=== PATIENT | female | born 1985 | race Caucasian/White ===

== ENCOUNTER 2021-11-14 23:57 | Emergency (ER) | payer BC, OTHER ==
[~2021-11-14] VITALS: Ht 154.9 cm; Wt 113.4 kg
[~2021-11-14 23:57] MED LIST: ACET-1172 PO
[2021-11-14 23:59] VITALS: BP_SYST 149
--- NOTE | 2021-11-15 00:02 | NUR ---
PER PATIENT, SHE IS 2 MONTHS POST- AND STARTED TAKING A DIET PILL TWO WEEKS AGO, SINCE TAKING PILL, PATIENT HAS HAD INCREASE IN DIARRHEA, AND PALPITATIONS AND FEELING WEAKNESS IN MUSCLES. NO OTHER COMPLAINTS AT THIS TIME.
--- NOTE | 2021-11-15 00:15 | NUR ---
PATIENT BROUGHT BACK TO BED 2 WITHOUT ISSUE, WAITING TO BE SEEN BY PHYSICIAN, REPORT GIVEN TO NABEEL EMANUEL.
[2021-11-15 00:56] LABS: HEMOGLOBIN 11.9 g/dL (12.0-16.0); MEAN CORPUSCULAR VOLUME 82 fL (79.0-98.0)
[2021-11-15 01:01] LABS: BASOPHILS % (AUTO) 0.7 % (0.0-2.0); EOSINOPHILS # (AUTO) 0.1 K/uL (0.0-0.4); EOSINOPHILS % (AUTO) 1.8 % (0.0-4.0); HEMATOCRIT 34.8 % (36-48); LYMPHOCYTES # (AUTO) 2.5 K/uL (1.0-5.5); LYMPHOCYTES % (AUTO) 34.5 % (20.5-51.5); MEAN CORPUSCULAR HEMOGLOBIN 28 pg (27-31); MEAN CORPUSCULAR HGB CONC 34 % (32-36); MONOCYTES # (AUTO) 0.5 K/uL (0.0-1.0); MONOCYTES % (AUTO) 7.2 % (1.7-9.3); NEUTROPHILS # (AUTO) 4.1 K/uL (1.8-7.7); NEUTROPHILS % (AUTO) 55.8 % (40.0-70.0); PLATELET COUNT (AUTO) 233 K/uL (130-430); RED BLOOD CELL COUNT(AUTO) 4.22 MIL/uL (4.2-6.2); RED CELL DISTRIBUTION WIDTH 15.4 % (9.0-15.0); WHITE BLOOD COUNT (AUTO) 7.3 K/uL (4.8-10.8)
[2021-11-15 01:05] LABS: ANION GAP 8 (5-15); CALCIUM 8.6 mg/dL (8.4-11.0); CHLORIDE 107 mmol/L (98-107); CREATININE 0.87 mg/dL (0.55-1.30); GLUCOSE 136 mg/dL (70-99); POTASSIUM 3.4 mmol/L (3.5-5.1); SODIUM SERUM 143 mmol/L (136-145); UREA NITROGEN, BLOOD 7 mg/dL (8-21)
[2021-11-15 01:14] LABS: ALANINE AMINOTRANSFERASE 112 U/L (12-78); ASPARTATE AMINOTRANSFERASE 64 U/L (10-37); TOTAL BILIRUBIN 0.1 mg/dL (0.0-1.0)
[2021-11-15 01:20] LABS: GFR AFRICAN AMERICAN 95 mL/min (>90)
[2021-11-15 02:55] LABS: THYROID STIMULATING HORMONE 2.29 uIu/mL (0.36-3.74)
--- NOTE | 2021-11-15 02:55 | NUR ---
DR. SOTOMAYOR SPEAKING TO PATIENT REGARDING DISCHARGE.
[2021-11-15 02:57] VITALS: BP_SYST 129
--- NOTE | 2021-11-15 02:58 | NUR ---
Patient given written and verbal discharge instructions and verbalizes understanding. ER MD discussed with patient the results and treatment provided. Patient in stable condition. ID arm band removed. IV catheter removed intact and dressing applied, no active bleeding. Rx of given. Patient educated on pain management and to follow up with PMD. Pain Scale . Opportunity for questions provided and answered. Medication side effect fact sheet provided.
== END 2021-11-15 02:59 | disposition home or self-care (01) ==
LOC: SED 23:57
DX: R07.89 Other chest pain (principal); T48.1X5A Adverse effect of skeletal muscle relaxants [neuromuscular blocking agents], initial encounter; E86.0 Dehydration; R00.2 Palpitations; R42 Dizziness and giddiness; K21.9 Gastro-esophageal reflux disease without esophagitis; Z79.899 Other long term (current) drug therapy
CPT/HCPCS: 36415; 71045; 80053; 83880; 84443; 84484; 85025; 93005; 99285

== ENCOUNTER 2021-11-18 18:50 | Emergency (ER) | payer MEDICAID, OTHER ==
[~2021-11-18] VITALS: Ht 154.9 cm; Wt 104.3 kg
[2021-11-18 19:27] VITALS: BP_SYST 121
--- NOTE | 2021-11-18 19:50 | NUR ---
Patient to ER bed PENA to [facility] for evaluation. Side rails up. Report given to KERRI LEES(REG).
[2021-11-18 20:14] LABS: BILIRUBIN,URINE NEGATIVE (NEGATIVE); BLOOD, URINE 1+ (NEGATIVE); CLARITY/URINE CLEAR (CLEAR); GLUCOSE,URINE NEGATIVE (NEGATIVE); KETONES,URINE NEGATIVE (NEGATIVE); NITRITE, URINE NEGATIVE (NEGATIVE); PROTEIN URINE NEGATIVE (NEGATIVE); UROBILINOGEN,URINE 0.2 (0.2-1.0)
[2021-11-18 20:30] LABS: COLOR,URINE STRAW (YELLOW); LEUKOCYTE ESTERASE ,URINE TRACE (NEGATIVE)
[2021-11-18 20:31] LABS: BACTERIA,URINE FEW /HPF (None Seen); MUCUS,URINE None Seen /LPF (None Seen); RBC,URINE NONE SEEN /HPF (0-3)
--- NOTE | 2021-11-18 20:35 | NUR ---
AT BEDSIDE. PT C/O BILATERAL THIGH PAIN WHILE LYING DOWN. PT IS AMBULATORY WITH STEADY GAIT. NO SIGNS OF ACUTE DISTRESS AT THIS TIME. PRIOR TO PAIN PT WAS TAKING DIET PILLS. PER PT, MIGHT BE DEHYDRATED
[2021-11-18 20:37] LABS: BASOPHILS % (AUTO) 0.3 % (0.0-2.0); EOSINOPHILS # (AUTO) 0.1 K/uL (0.0-0.4); HEMOGLOBIN 11.9 g/dL (12.0-16.0); LYMPHOCYTES # (AUTO) 1.8 K/uL (1.0-5.5); LYMPHOCYTES % (AUTO) 25.7 % (20.5-51.5); MEAN CORPUSCULAR HEMOGLOBIN 28 pg (27-31); MEAN CORPUSCULAR HGB CONC 33 % (32-36); MEAN CORPUSCULAR VOLUME 84 fL (79.0-98.0); MONOCYTES # (AUTO) 0.5 K/uL (0.0-1.0); MONOCYTES % (AUTO) 6.7 % (1.7-9.3); NEUTROPHILS # (AUTO) 4.7 K/uL (1.8-7.7); NEUTROPHILS % (AUTO) 65.3 % (40.0-70.0); PLATELET COUNT (AUTO) 248 K/uL (130-430); WHITE BLOOD COUNT (AUTO) 7.2 K/uL (4.8-10.8)
[2021-11-18 20:41] LABS: ACETONE, SERUM NEGATIVE (NEGATIVE)
[2021-11-18 20:52] LABS: ANION GAP 6 (5-15); CALCIUM 8.5 mg/dL (8.4-11.0); CHLORIDE 107 mmol/L (98-107); CREATININE 0.62 mg/dL (0.55-1.30); GLUCOSE 157 mg/dL (70-99); POTASSIUM 4.3 mmol/L (3.5-5.1); SODIUM SERUM 140 mmol/L (136-145); UREA NITROGEN, BLOOD 6 mg/dL (8-21)
[2021-11-18 20:58] LABS: ALANINE AMINOTRANSFERASE 91 U/L (12-78); ALBUMIN 2.8 g/dL (3.4-4.8); ASPARTATE AMINOTRANSFERASE 54 U/L (10-37); TOTAL BILIRUBIN 0.1 mg/dL (0.0-1.0)
[2021-11-18] MEDS ORDERED: IBUP-1969 PO (21:08)
[2021-11-18] MEDS ORDERED: HYDR-3917 PO (21:08)
--- NOTE | 2021-11-18 21:45 | NUR ---
Patient given written and verbal discharge instructions and verbalizes understanding. ER MD discussed with patient the results and treatment provided. Patient in stable condition. ID arm band removed. Rx of [place] and Ibuprofen given. Patient educated on pain management and to follow up with PMD. Pain Scale 7/10. Opportunity for questions provided and answered. Medication side effect fact sheet provided.
[2021-11-18 21:46] VITALS: BP_SYST 119
== END 2021-11-18 21:46 | disposition home or self-care (01) ==
LOC: SED 18:50
DX: G47.62 Sleep related leg cramps (principal); M54.50 Low back pain, unspecified; M62.831 Muscle spasm of calf; K21.9 Gastro-esophageal reflux disease without esophagitis; Z79.899 Other long term (current) drug therapy
CPT/HCPCS: 36415; 80053; 81000; 81025; 82009; 82550; 83605; 85025; 99283